=== PATIENT | female | born 1995 | race Caucasian/White ===

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

== ENCOUNTER 2017-01-20 05:29 | Inpatient (IN) | payer OTHER ==
[~2017-01-20] VITALS: Ht 177.8 cm; Wt 77.6 kg
[2017-01-20] VITALS (43 sets, daily range): BP systolic 115–177; BP diastolic 58–96
[2017-01-20] MEDS ORDERED: MINERAL OIL CONCENTRATE 99.9% 15 ML UDC TOP PRN (06:15)
[2017-01-20 06:33] LABS: BASOPHILS % (AUTO) 0 % (0-10); EOSINOPHILS % (AUTO) 0 % (0-10); LYMPHOCYTES # (AUTO) 1.3 X 10^3 (1.0-4.0); LYMPHOCYTES % (AUTO) 12 % (12-44); MEAN CORPUSCULAR HEMOGLOBIN 30 PG (25-34); MEAN CORPUSCULAR HGB CONC 34 G/DL (32-36); MEAN CORPUSCULAR VOLUME 89 FL (80-99); MEAN PLATELET VOLUME 11.6 FL (7.4-10.4); MONOCYTES # (AUTO) 0.9 X 10^3 (0.0-1.0); MONOCYTES % (AUTO) 8 % (0-12); NEUTROPHILS # (AUTO) 9.3 X 10^3 (1.8-7.8); NEUTROPHILS % (AUTO) 81 % (42-75); PLATELET COUNT 211 10^3/uL (130-400); RED BLOOD COUNT 3.13 10^6/uL (4.35-5.85); RED CELL DISTRIBUTION WIDTH 12.3 % (10.0-14.5); WHITE BLOOD COUNT 11.6 10^3/uL (4.3-11.0)
[2017-01-20] MEDS: D5 LR IV SOLUTION 1,000 ML IV SCH ×2 (06:42→14:42)
--- NOTE | 2017-01-20 08:34 | History & Physical-OB ---
OB - Chief Complaint & HPI Date/Time Date of Admission: Date of Admission: Jan 20, 2017 at 6:11 am Time Seen by Provider: 08:29 Chief Complaint/History OB-Reason for Admission/Chief: Rupture of Membranes Hx : 1 Hx Para: 0 Expected Date of Delivery: Jan 30, 2017 Gestational Age in Weeks: 38 Gestational Age in Days: 4 Other reason for admission: At home noted gush of fluid at around 1 am with continued leaking fluid and mild contractions, found to have SROM. Admission Nurse Assessment Rev: Yes History of Labs A neg, antibody neg, RNI, HIV/HepB/RPR NR, GC/chlamydia neg. Declined tetra. 1 hour glucola normal. Hgb 10.0. GBS neg. Allergies and Home Medications Allergies Coded Allergies: amoxicillin (Verified Allergy, Mild, RASH, 01/20/17) clavulanic acid (Verified Allergy, Mild, RASH, 01/20/17) Home Medications Albuterol Sulfate 1.25 Mg/3 Ml Vial.neb, 1.25 MG IH PRN, (Reported) Ferrous Sulfate 325 Mg Tablet, 325 MG PO DAILY, (Reported) OB - History Hx of Present Care: Yes Ultrasounds: Normal mid trimester US Obstetrical Complications: None Medical Complications: Respiratory (asthma) Obstetrical History Hx : 1 Hx Para: 0 Hx # Term Pregnancies: 0 Hx # Pregnancies: 0 Number of Living Children: 0 Delivery History Hx Blood Disorders: No Patient Past Medical History PMHx: Asthma ADHD PSurgHx: None Social History/Family History HIV/AIDS: No Recent Infectious Disease Expo: No Sexually Transmitted Disease: No Alcohol Use: Denies Use Recreational Drug Use: No Smoking Cessation: Never smoker Immunizations Tetanus Booster (TDap): Less than 5yrs (12/06/2016) Date of Pneumonia Vaccine: Dec 24, 2013 Date of Influenza Vaccine: Nov 17, 2016 Rubella: not immune RPR/VDRL: Negative GBS Status: Negative HBsAG: Negative OB - Admission Exam Physical Exam HEENT: NCAT Abdomen: Non tender Extremities: Normal Cervical Dilatation: 4cm Effacement: Other (80%) Station: 0 Membranes: Ruptured Amniotic Fluid: Clear Heart Rate: 140's Accelerations: Accelerations Present Decelerations: No Decelerations Short Term Variability: Present Fci Variability: Average (6-25) Contractions on Admission: < 5 Minutes Apart Intensity: Mild Labs Laboratory Tests Test 01/20/17 06:25 Range/Units White Blood Count 11.6 H 4.3-11.0 10^3/uL Red Blood Count 3.13 L 4.35-5.85 10^6/uL Hemoglobin 9.4 L 11.5-16.0 G/DL Hematocrit 28 L 35-52 % Mean Corpuscular Volume 89 80-99 FL Mean Corpuscular Hemoglobin 30 25-34 PG Mean Corpuscular Hemoglobin Concent 34 32-36 G/DL Red Cell Distribution Width 12.3 10.0-14.5 % Platelet Count 211 130-400 10^3/uL Mean Platelet Volume 11.6 H 7.4-10.4 FL Neutrophils (%) (Auto) 81 H 42-75 % Lymphocytes (%) (Auto) 12 12-44 % Monocytes (%) (Auto) 8 0-12 % Eosinophils (%) (Auto) 0 0-10 % Basophils (%) (Auto) 0 0-10 % Neutrophils # (Auto) 9.3 H 1.8-7.8 X 10^3 Lymphocytes # (Auto) 1.3 1.0-4.0 X 10^3 Monocytes # (Auto) 0.9 0.0-1.0 X 10^3 Eosinophils # (Auto) 0.0 0.0-0.3 10^3/uL Basophils # (Auto) 0.0 0.0-0.1 10^3/uL OB - Assessment/Plan/Diagnosis Assessment Assessment: rupture of membranes Plan Plan: Expectant Management Copy Copies To 1: RICHI COSBY MD, BETHANY N MD Jan 20, 2017 8:34 am
[2017-01-20] MEDS: OXYTOCIN/NORMAL SALINE 500 ML IV SCH ×2 (10:33→16:49)
[2017-01-20] MEDS ORDERED: fentaNYL INJECTION 100 MCG/2 ML AMP IVP PRN (11:30)
[2017-01-20] MEDS ORDERED: fentaNYL INJECTION 100 MCG/2 ML AMP ONE (12:57)
[2017-01-20] MEDS ORDERED: BUPIVACAINE 0.25% 30 ML (SENSORCAINE) VIAL ONE (12:57)
[2017-01-20] MEDS ORDERED: SUFENTA 0.6MCG/ML BUPIVA 0.125 100 ML ONE (13:13)
[2017-01-20] MEDS ORDERED: NALOXONE 0.4 MG/ML 1 ML (NARCAN) VIAL IV PRN (14:00)
[2017-01-20] MEDS ORDERED: ONDANSETRON 4 MG/2 ML (SDV) Z0FRAN IV PRN (14:00)
[2017-01-20] MEDS ORDERED: CATHETER FLUSH 10 ML SYR IV SCH ×2 (14:00→22:00)
[2017-01-20] MEDS ORDERED: EPIDURAL (SUFENTA 0.6MCG/ML BUPIVA 0.125%) 100 ML BAG EPI SCH (14:00)
[2017-01-20] MEDS ORDERED: LIDOCAINE/EPI 2% 1:200,00 (XYLOCAINE) 10 ML VIAL ONE ×2 (15:57→16:19)
[2017-01-20] MEDS ORDERED: MISOPROSTOL 200 MCG (CYTOTEC) TABLET ONE (16:05)
[2017-01-20] MEDS ORDERED: MISOPROSTOL 200 MCG (CYTOTEC) TABLET PR ONE (16:15)
[2017-01-20] MEDS ORDERED: OXYTOCIN/NORMAL SALINE 500 ML IV SCH (17:53)
[2017-01-20] MEDS ORDERED: DIBUCAINE (NUPERCAINAL) 1% OINT 30 GM TOP PRN (18:00)
[2017-01-20] MEDS ORDERED: TETANUS,DIPTH,PERTUSS P/F (BOOSTRIX) 0.5 ML VIAL IM ONE (18:00)
[2017-01-20] MEDS ORDERED: WITCH HAZEL(TUCKS) 40 EA JAR TOP PRN (18:00)
[2017-01-20] MEDS ORDERED: MEASLES,MUMPS,RUBELLA 1 EA INJ SQ ONE (18:00)
[2017-01-20] MEDS ORDERED: HYDROcodone/APAP 5 MG/325 MG (LORTAB) TAB PO PRN (18:00)
[2017-01-20] MEDS ORDERED: BENZOCAINE/MENTHOL (DERMOPLAST) 56 ML CAN TP PRN (18:00)
[2017-01-20] MEDS: IBUPROFEN 600 MG (MOTRIN) TAB PO SCH ×2 (18:02→23:56)
[2017-01-20] MEDS: DOCUSATE SODIUM 100 MG (COLACE) CAP PO SCH (23:57)
--- NOTE | 2017-01-21 00:05 | OB Labor & Delivery Record ---
Vag Delivery Note Vag Delivery Note Date of Delivery: 01/21/17 Preoperative Diagnosis: Lydia Herman is a (21 /Para 1 / 0,Gestational Age (wks)38with 4 days Postoperative Diagnosis: Same Surgeon: RICHI COSBY Anesthesia: Epidural/spinal Delivery Type: Spontaneous vaginal delivery Findings: Viable male infant, apgars 8/9, weight 7#12 Lacerations: second degree perineal Intact placenta with 3 vessel cord. Nuchal cord x 1, delivered through, no body cord or shoulder dystocia Cytotec 800 mcg placed for hemorrhage prophylaxis Estimated Blood Loss: 400 ml Complications: None Condition: Stable Description of Procedure: The patient is a 21 yo G1 who presented with SROM. She was admitted and informed consent was obtained. Her labor course was unremarkable. She progressed to complete dilatation and began to push. She was then set up for delivery. The infant's head was delivered atraumatically in the JUD position. The shoulders and remainder of the infant's body were then delivered without difficulty. Upon delivery, the head was held below the level of the perineum and the cried spontaneously and was placed on maternal abdomen. After a delay, the cord was doubly clamped and cut and the was handed off to the pediatric staff. An intact placenta with 3- vessel cord delivered via Quentin and there was found to be minimal bleeding.~ Vigorous fundal massage was performed and the fundus was found to be firm. IV oxytocin was given. Examination of the vagina and perineum revealed a second degree laceration repaired in the usual fashion with 3-0 rapide suture. Following the repair, sponge, instrument and needle counts were correct. Mom and baby were both in stable condition in the labor suite. Vitals - Labs Labs Laboratory Tests 01/20/17 06:25: White Blood Count 11.6H, Red Blood Count 3.13L, Hemoglobin 9.4L, Hematocrit 28L , Mean Corpuscular Volume 89, Mean Corpuscular Hemoglobin 30, Mean Corpuscular Hemoglobin Concent 34, Red Cell Distribution Width 12.3, Platelet Count 211, Mean Platelet Volume 11.6H, Neutrophils (%) (Auto) 81H, Lymphocytes (%) (Auto) 12, Monocytes (%) (Auto) 8, Eosinophils (%) (Auto) 0, Basophils (%) (Auto) 0, Neutrophils # (Auto) 9.3H, Lymphocytes # (Auto) 1.3, Monocytes # (Auto) 0.9, Eosinophils # (Auto) 0.0, Basophils # (Auto) 0.0 RICHI COSBY MD Jan 21, 2017 12:05 am
[2017-01-21 04:30] VITALS: BP 119/71
[2017-01-21 06:10] LABS: BASOPHILS % (AUTO) 0 % (0-10); EOSINOPHILS # (AUTO) 0.1 10^3/uL (0.0-0.3); EOSINOPHILS % (AUTO) 1 % (0-10); LYMPHOCYTES # (AUTO) 1.4 X 10^3 (1.0-4.0); LYMPHOCYTES % (AUTO) 15 % (12-44); MEAN CORPUSCULAR HEMOGLOBIN 29 PG (25-34); MEAN CORPUSCULAR HGB CONC 32 G/DL (32-36); MEAN CORPUSCULAR VOLUME 91 FL (80-99); MEAN PLATELET VOLUME 11.2 FL (7.4-10.4); MONOCYTES % (AUTO) 10 % (0-12); NEUTROPHILS # (AUTO) 7.4 X 10^3 (1.8-7.8); NEUTROPHILS % (AUTO) 75 % (42-75); PLATELET COUNT 170 10^3/uL (130-400); RED BLOOD COUNT 2.63 10^6/uL (4.35-5.85); RED CELL DISTRIBUTION WIDTH 12.4 % (10.0-14.5); WHITE BLOOD COUNT 9.9 10^3/uL (4.3-11.0)
[2017-01-21] MEDS: IBUPROFEN 600 MG (MOTRIN) TAB PO SCH ×2 (06:16→12:57)
[2017-01-21] MEDS ORDERED: PRENATAL VITAMIN 1 EA TAB PO SCH (07:00)
[2017-01-21 07:54] VITALS: BP 130/83
[2017-01-21] MEDS ORDERED: MEASLES,MUMPS,RUBELLA 1 EA INJ ONE (09:58)
[2017-01-21] MEDS: DOCUSATE SODIUM 100 MG (COLACE) CAP PO SCH (10:10)
[2017-01-21] MEDS ORDERED: IBUP-1773 PO (12:32)
--- NOTE | 2017-01-21 12:33 | Discharge Instructions ---
Discharge Inst-Women's Serv Depart Medications New, Converted or Re-Newed RX: Other (may take over the counter or call to pharmacy) New Medications: Ibuprofen (Ibuprofen) 600 Mg Tablet 600 MG PO Q6H PRN for CRAMPS, #90 TAB 0 Refills Continued Medications: Albuterol Sulfate (Albuterol Sulfate) 1.25 Mg/3 Ml Vial.neb 1.25 MG IH PRN, EACH Ferrous Sulfate (Iron) 325 Mg Tablet 325 MG PO DAILY, TAB Follow Up/Instructions Goal/Follow Up: Follow-up with Dr. Argueta in 6 weeks Activity Activity: Activity as Tolerated Nothing Inside Vagina: No Douching, No [place], No Tampons Diet Discharge Diet: No Restrictions Symptoms to Report to : Bleeding Excessive, Pain Increased, Fever Over 101 Degrees F, Vaginal Bleeding Increase, Vaginal Discharge Foul, Shortness of Breath For Any Problems or Questions: Contact Your Physician Copies To 1: RICHI ARGUETA MD, LINDA K DO Jan 21, 2017 12:33
[2017-01-21 12:56] VITALS: BP 124/69
--- NOTE | 2017-01-21 20:06 | Discharge Summary ---
Diagnosis/Chief Complaint Date of Admission Jan 20, 2017 at 06:11 Date of Discharge Jan 21, 2017 at 14:25 Admission Diagnosis Admission Diagnosis at 38w4 SROM Anemia of Discharge Diagnosis at 38w4 s/p 01/20/17 2nd degree laceration repair Anemia of , asymptomatic Discharge Summary-OBS Procedures None. Discharge Physical Examination Allergies: Coded Allergies: amoxicillin (Verified Allergy, Mild, RASH, 01/20/17) clavulanic acid (Verified Allergy, Mild, RASH, 01/20/17) Vitals & I&Os Vital Sign - Last 12Hours Date Time Temp Pulse Resp B/P (MAP) Pulse Ox O2 Delivery O2 Flow Rate FiO2 01/21/17 12:56 98.9 94 16 124/69 97 Room Air General Appearance: Alert, Oriented X3, Cooperative Abdominal: Soft, No Tenderness Psych/Mental Status: Mental Status NL Hospital Course Routine pp course. Pt DC prior to 24h due to infant transfer to [facility] due to respiratory distress. Labs Laboratory Tests 01/21/17 05:57: White Blood Count 9.9, Red Blood Count 2.63L, Hemoglobin 7.7L, Hematocrit 24L, Mean Corpuscular Volume 91, Mean Corpuscular Hemoglobin 29, Mean Corpuscular Hemoglobin Concent 32, Red Cell Distribution Width 12.4, Platelet Count 170, Mean Platelet Volume 11.2H, Neutrophils (%) (Auto) 75, Lymphocytes (%) (Auto) 15 , Monocytes (%) (Auto) 10, Eosinophils (%) (Auto) 1, Basophils (%) (Auto) 0, Neutrophils # (Auto) 7.4, Lymphocytes # (Auto) 1.4, Monocytes # (Auto) 1.0, Eosinophils # (Auto) 0.1, Basophils # (Auto) 0.0 Discharge Instructions to patient/family Please see electronic discharge instructions given to patient. Discharge Medications Reviewed and agree with Discharge Medication list on patient's Discharge Instruction sheet Clinical Quality Measures DVT/VTE Risk/Contraindication: Risk Factor Score Per Nursin RFS Level Per Nursing on Admit: 1=Low/No VTE PPX HELENA VELAZCO DO Jan 21, 2017 20:06
== END 2017-01-21 14:25 | disposition home or self-care (01) | DRG 775 ==
LOC: WSo 05:29 → LDRP 05:30 → WSo 06:11 → LDRP 17:50
PROVIDERS: ADMIT Family Medicine; ATTEND Family Medicine
PROC: 0KQM0ZZ Repair Perineum Muscle, Open Approach (ICD-10-PCS; principal; 2017-01-21)
PROC: 10E0XZZ Delivery of Products of Conception, External Approach (ICD-10-PCS; 2017-01-21)
DX: O99.52 Diseases of the respiratory system complicating childbirth (principal); O99.344 Other mental disorders complicating childbirth; O70.1 Second degree perineal laceration during delivery; J45.909 Unspecified asthma, uncomplicated; F90.9 Attention-deficit hyperactivity disorder, unspecified type; O69.81X0 Labor and delivery complicated by cord around neck, without compression, not applicable or unspecified; O99.013 Anemia complicating pregnancy, third trimester; D64.9 Anemia, unspecified; Z3A.38 38 weeks gestation of pregnancy; Z37.0 Single live birth; Z23 Encounter for immunization
CPT/HCPCS: 36415; 83033; 85025; 86850; 86900; 86901; 90707; 99212

== ENCOUNTER 2020-02-10 14:08 | Outpatient (CLI) | payer MEDICAID ==
[~2020-02-10] VITALS: Ht 177.8 cm; Wt 85.5 kg
--- NOTE | 2020-02-10 13:58 | NUR ---
SONA FISCHER presented to unit via AMBULATORY from ED, with c/o CONTRACTIONS. SONA FISCHER weighed, gowned, voided, and to bed. EFHM and TOCO applied, VS taken. SONA FISCHER oriented to bed controls, call light, TV, heat, and A/C controls.
[~2020-02-10 14:08] MED LIST changes: +IBUP-1773 PO
[2020-02-10 14:10] VITALS: BP 136/87
[2020-02-10 14:24] LABS: BILIRUBIN,URINE NEGATIVE (NEGATIVE); CLARITY,URINE SL CLOUDY; COLOR,URINE YELLOW; GLUCOSE, URINE (UA) NEGATIVE (NEGATIVE); KETONES,URINE NEGATIVE (NEGATIVE); LEUKOCYTE ESTERASE ,URINE 2+ (NEGATIVE); NITRITE,URINE NEGATIVE (NEGATIVE); PROTEIN,URINE NEGATIVE (NEGATIVE)
[2020-02-10 14:32] LABS: BACTERIA,URINE MODERATE /HPF
[2020-02-10 14:48] VITALS: BP 136/87
--- NOTE | 2020-02-10 15:00 | NUR ---
DR. COSBY TO UNIT, CURRENTLY ON THE PHONE.
--- NOTE | 2020-02-10 15:09 | NUR ---
REFER TO FLOW SHEET.
--- NOTE | 2020-02-10 16:31 | Diagnostic Imaging Report ---
INDICATION: Fall with right wrist pain. EXAMINATION: AP and lateral views of the right wrist are obtained. FINDINGS: No fracture or acute bony abnormality seen. Joint spaces are unremarkable. IMPRESSION: Negative right wrist. Dictated by: Dictated on workstation # [id number]
--- NOTE | 2020-02-10 16:41 | NUR ---
DR. COSBY NOTIFIED OF NEGATIVE WRIST XRAY. ORDER RECEIVED TO DISCHARGE HOME. INDUCTION SCHEDULED FOR February.
--- NOTE | 2020-02-10 16:47 | NUR ---
DISCHARGE PAPERS PROVIDED AND REVIEWED WITH PT, PT VERBALIZES UNDERSTANDING. NO QUESTIONS VOICED. PAPER SIGNED.
--- NOTE | 2020-02-10 16:50 | NUR ---
PT DISCHARGED FROM -[facility] TO [facility] VIA AMBULATORY IN STABLE CONDITION. BELONGINGS IN HAND.
--- NOTE | 2020-02-11 11:27 | Physician Query-Final Dx ---
MANISHA SMITH 02/11/20 1127: Clinic Account Progress/Dx Physician Query: Please give diagnosis Please include # weeks gestation Date of Service Feb 10, 2020 at 14:08 RICHI COSBY MD 02/11/205: Clinic Account Progress/Dx DIAGNOSIS: Diagnosis 38 weeks gestation Contractions without active labor right wrist injury MANISHA SMITH Feb 11, 2020 11:27 RICHI COSBY MD Feb 11, 2020 20:45
== END 2020-02-10 16:50 | disposition home or self-care (01) ==
LOC: LDRP 14:08 → WSo 14:08
PROVIDERS: ATTEND Family Medicine
DX: O9A.313 Physical abuse complicating pregnancy, third trimester (principal); O62.9 Abnormality of forces of labor, unspecified; S69.91XA Unspecified injury of right wrist, hand and finger(s), initial encounter; Z3A.38 38 weeks gestation of pregnancy
CPT/HCPCS: 73100; 81000; 87088; U0002; 87635; 99213

== ENCOUNTER 2020-02-12 04:20 | Inpatient (IN) | payer MEDICAID ==
[~2020-02-12] VITALS: Ht 177.8 cm; Wt 84.6 kg
[2020-02-12] VITALS (35 sets, daily range): BP systolic 107–152; BP diastolic 70–97
--- NOTE | 2020-02-12 06:20 | NUR ---
SONA FISCHER presented to unit via WC from ED, accompanied by KATTY AGENT [employer] DESK, with c/o INDUCTION. SONA FISCHER weighed, gowned, voided, and to bed. EFHM and TOCO applied, VS taken. SONA FISCHER oriented to bed controls, call light, TV, heat, and A/C controls. ABOVE AND IV START PER THIS RN.
--- NOTE | 2020-02-12 06:58 | NUR ---
Reactive NST, FHR 130's with moderate variability, no decels noted and accels greater than 15/15. Uterine irritability noted with no contractions.
[2020-02-12] MEDS ORDERED: D5 LR IV SOLUTION 1,000 ML IV SCH (07:15)
[2020-02-12] MEDS ORDERED: OXYTOCIN PRE-MIX DRIP 500 ML IV SCH ×2 (07:15→11:45)
[2020-02-12 07:50] LABS: BASOPHILS % (AUTO) 0 % (0-10); EOSINOPHILS # (AUTO) 0.1 10^3/uL (0.0-0.3); EOSINOPHILS % (AUTO) 1 % (0-10); HEMATOCRIT 27 % (35-52); LYMPHOCYTES # (AUTO) 1.2 10^3/uL (1.0-4.0); LYMPHOCYTES % (AUTO) 18 % (12-44); MEAN CORPUSCULAR HEMOGLOBIN 30 pg (25-34); MEAN CORPUSCULAR HGB CONC 34 g/dL (32-36); MEAN CORPUSCULAR VOLUME 89 fL (80-99); MEAN PLATELET VOLUME 11.6 fL (9.0-12.2); MONOCYTES # (AUTO) 0.6 10^3/uL (0.0-1.0); MONOCYTES % (AUTO) 8 % (0-12); NEUTROPHILS # (AUTO) 4.9 10^3/uL (1.8-7.8); NEUTROPHILS % (AUTO) 72 % (42-75); PLATELET COUNT 239 10^3/uL (130-400); WHITE BLOOD COUNT 6.8 10^3/uL (4.3-11.0)
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
[2020-02-12 08:11] LABS: ALANINE AMINOTRANSFERASE 7 U/L (0-55); ALBUMIN 3.4 GM/DL (3.2-4.5); ALKALINE PHOSPHATASE 118 U/L (40-136); BILIRUBIN,TOTAL 0.5 MG/DL (0.1-1.0); BUN/CREATININE RATIO 10; CARBON DIOXIDE 22 MMOL/L (21-32); CHLORIDE 104 MMOL/L (98-107); CREATININE SERUM 0.71 MG/DL (0.60-1.30); GFR ESTIMATED > 60; GLUCOSE 97 MG/DL (70-105); POTASSIUM 2.9 MMOL/L (3.6-5.0); SODIUM 137 MMOL/L (135-145); TOTAL PROTEIN 6.4 GM/DL (6.4-8.2)
[2020-02-12] MEDS ORDERED: fentaNYL 2 mcg/ml BUPIVA 0.125 100 ML ONE (09:29)
[2020-02-12] MEDS ORDERED: LACTATED RINGERS 1,000 ML IV ONE (09:30)
[2020-02-12] MEDS ORDERED: LIDOCAINE/EPI 2% 1:200,00 (XYLOCAINE) 10 ML VIAL ONE (10:16)
[2020-02-12] MEDS ORDERED: LIDOCAINE PF 2% 5 ML (XYLOCAINE) VIAL ONE (10:25)
[2020-02-12] MEDS ORDERED: BUPIVACAINE 0.25% 30 ML (SENSORCAINE) VIAL ONE (10:25)
[2020-02-12] MEDS ORDERED: fentaNYL INJECTION 100 MCG/2 ML AMP ONE (10:25)
[2020-02-12] MEDS ORDERED: LACTATED RINGERS 1,000 ML IV SCH (10:45)
[2020-02-12] MEDS ORDERED: diphenhydrAMINE 50 MG/ML INJ (BENADRYL) IV PRN (10:45)
[2020-02-12] MEDS ORDERED: EPIDURAL (fentaNYL 2 MCG/ML BUPIVA 0.125%)100 ML BAG EPI PRN (10:45)
[2020-02-12] MEDS ORDERED: NALOXONE 0.4 MG/ML 1 ML (NARCAN) VIAL IV PRN (10:45)
[2020-02-12] MEDS ORDERED: ONDANSETRON 4 MG/2 ML (SDV) Z0FRAN IV PRN (10:45)
[2020-02-12] MEDS ORDERED: fentaNYL 2 mcg/ml BUPIVA 0.125 100 ML EPI PRN (11:00)
[2020-02-12] MEDS ORDERED: MISOPROSTOL 200 MCG (CYTOTEC) TABLET ONE (11:24)
--- NOTE | 2020-02-12 11:43 | History & Physical-OB/GYN ---
DESMONDKENDAL Milton MED STUDENT 02/12/20 1143: OB - Chief Complaint & HPI Date/Time Date of Admission: Date of Admission: Feb 12, 2020 at 06:17 Date seen by a Provider: Feb 12, 2020 Time Seen by a Provider: 08:40 Chief Complaint/History OB-Reason for Admission/Chief: Medical Complication (gestational hypertension ) Hx : 2 Hx Para: 1 Hx Last Menstrual Period: 05/14/2019 Expected Date of Delivery: Feb 18, 2020 Gestational Age in Weeks: 39 Gestational Age in Days: 1 Indication for induction: medical complication Admission Nurse Assessment Rev: Yes Allergies and Home Medications Allergies Coded Allergies: amoxicillin (Verified Allergy, Severe, Shortness of Breath, 02/12/20) clavulanic acid (Verified Allergy, Mild, RASH, 01/20/17) Home Medications Albuterol Sulfate 1.25 Mg/3 Ml Vial.neb, 1.25 MG IH PRN, (Reported) Ferrous Sulfate 325 Mg Tablet, 325 MG PO DAILY, (Reported) Patient Home Medication List Home Medication List Reviewed: Yes OB - History Hx of Present Care: Yes Ultrasounds: Normal mid trimester US Obstetrical Complications: Gestational Hypertension Medical Complications: None Information Induced Hypertension: Yes Maternal Gestational Diabetes: No Hemorrhage: No Obstetrical History Hx : 2 Hx Para: 1 Hx # Term Pregnancies: 1 Hx # Pregnancies: 0 Number of Living Children: 1 Hx Termination: No Hx Multiple Gestation: Yes Hx Ectopic : No Hx Stillbirth: No Hx Complication: No Hx Induced Hypertens: Yes Hx Maternal Gestational Diabet: No Hx Hemorrhage: No Delivery History Hx Dystocia: No Hx Forceps Assisted Delivery: No Hx Vacuum Extraction Assisted: No Hx Placenta Abnormality: No Hx Distress: No Hx Large For Gestational Age I: No Hx Small for Gestational Age I: No Hx Section: No Hx Vaginal Delivery Post C-Sec: No Hx Blood Disorders: No Adverse Rxn to Tranfusion: No Patient Past Medical History PMHx: Asthma ADHD PSurgHx: None Social History/Family History HIV/AIDS: No Recent Infectious Disease Expo: No Sexually Transmitted Disease: Yes (Trich - early preg) Alcohol Use: Denies Use Recreational Drug Use: No Immunizations Hepatitis A: No Hepatitis B: No Tetanus Booster (TDap): Less than 5yrs Date of Pneumonia Vaccine: Dec 24, 2013 Date of Influenza Vaccine: Nov 17, 2016 Rubella: immune RPR/VDRL: Negative GBS Status: Negative HBsAG: Negative OB - Admission Exam Physical Exam HEENT: Eyes non-injected Lungs: Clear Abdomen: Non tender Extremities: Normal Cervical Dilatation: 5cm Effacement: 50% Station: -2 Membranes: Intact Amniotic Fluid: Other (bloody) Heart Rate: 140's Accelerations: Accelerations Present Decelerations: Variable Decelerations Short Term Variability: Present Program Instructor Variability: Average (6-25) Contractions on Admission: 6-10 Minutes Apart Date/Time Contractions Began;: patient has had contractions for the past week Frequency of Contractions: 10 minutes apart Intensity: Mild Eduardo Scoring Tool (Modified) Dilation (cm): >5cm (3) Effacement (%): 51-79% (2) Descent/Station: -2 (1) Cervix Consistency: Medium(1) Cervix Position: Anterior (2) Labs Laboratory Tests Test 02/12/20 06:45 Range/Units White Blood Count 6.8 4.3-11.0 10^3/uL Red Blood Count 2.99 L 3.80-5.11 10^6/uL Hemoglobin 9.0 L 11.5-16.0 g/dL Hematocrit 27 L 35-52 % Mean Corpuscular Volume 89 80-99 fL Mean Corpuscular Hemoglobin 30 25-34 pg Mean Corpuscular Hemoglobin Concent 34 32-36 g/dL Red Cell Distribution Width 12.9 10.0-14.5 % Platelet Count 239 130-400 10^3/uL Mean Platelet Volume 11.6 9.0-12.2 fL Immature Granulocyte % (Auto) 0 % Neutrophils (%) (Auto) 72 42-75 % Lymphocytes (%) (Auto) 18 12-44 % Monocytes (%) (Auto) 8 0-12 % Eosinophils (%) (Auto) 1 0-10 % Basophils (%) (Auto) 0 0-10 % Neutrophils # (Auto) 4.9 1.8-7.8 10^3/uL Lymphocytes # (Auto) 1.2 1.0-4.0 10^3/uL Monocytes # (Auto) 0.6 0.0-1.0 10^3/uL Eosinophils # (Auto) 0.1 0.0-0.3 10^3/uL Basophils # (Auto) 0.0 0.0-0.1 10^3/uL Immature Granulocyte # (Auto) 0.0 0.0-0.1 10^3/uL Sodium Level 137 135-145 MMOL/L Potassium Level 2.9 L 3.6-5.0 MMOL/L Chloride Level 104 98-107 MMOL/L Carbon Dioxide Level 22 21-32 MMOL/L Anion Gap 11 5-14 MMOL/L Blood Urea Nitrogen 7 7-18 MG/DL Creatinine 0.71 0.60-1.30 MG/DL Estimat Glomerular Filtration Rate > 60 BUN/Creatinine Ratio 10 Glucose Level 97 70-105 MG/DL Uric Acid 5.0 2.6-7.2 MG/DL Calcium Level 9.0 8.5-10.1 MG/DL Corrected Calcium 9.5 8.5-10.1 MG/DL Total Bilirubin 0.5 0.1-1.0 MG/DL Aspartate Amino Transf (AST/SGOT) 9 5-34 U/L Alanine Aminotransferase (ALT/SGPT) 7 0-55 U/L Alkaline Phosphatase 118 40-136 U/L Lactate Dehydrogenase 135 125-220 U/L Total Protein 6.4 6.4-8.2 GM/DL Albumin 3.4 3.2-4.5 GM/DL OB - Assessment/Plan/Diagnosis Assessment Assessment: active labor, induction of labor Admission Dx Labor induction Reason for Inpatient Admission: Labor induction Plan Plan: Induction Induction Method: per Pitocin Protocol (with AROM) Problems: (1) Gestational hypertension Qualifiers: Qualified Codes: O13.3 - Gestational [-induced] hypertension without significant proteinuria, third trimester RICHI COSBY MD 02/12/20 1349: Allergies and Home Medications Allergies Coded Allergies: amoxicillin (Verified Allergy, Severe, Shortness of Breath, 02/12/20) clavulanic acid (Verified Allergy, Mild, RASH, 01/20/17) Home Medications Albuterol Sulfate 1.25 Mg/3 Ml Vial.neb, 1.25 MG IH PRN, (Reported) Ferrous Sulfate 325 Mg Tablet, 325 MG PO DAILY, (Reported) Patient Home Medication List Home Medication List Reviewed: Yes OB - Admission Exam Eduardo Scoring Tool (Modified) Dilation (cm): >5cm (3) Effacement (%): 51-79% (2) Descent/Station: -2 (1) Cervix Consistency: Soft (2) Cervix Position: Anterior (2) Add 1 point for: Each previous vaginal delivery (1) Eduardo Score: 11 OB - Assessment/Plan/Diagnosis Assessment Admission Status: Inpatient Order (span 2 midnights) Reason for Inpatient Admission: Induction, labor, delivery and course Plan Problems: (1) Gestational hypertension Assessment & Plan: Check preeclampsia labs Qualifiers: Qualified Codes: O13.3 - Gestational [-induced] hypertension without significant proteinuria, third trimester Supervisory-Addendum Brief Verification & Attestation Participated in pt care: history, MDM, physical Personally performed: exam, history, MDM Care discussed with: Medical Student Procedures: n/a I saw and examined this patient myself and agree with history, exam and plan as documented by medical student. KENDAL LOGAN MED STUDENT Feb 12, 2020 11:43 RICHI COSBY MD Feb 12, 2020 13:49
[2020-02-12] MEDS ORDERED: OXYTOCIN PRE-MIX DRIP 500 ML IV ONE (11:44)
[2020-02-12] MEDS ORDERED: WITCH HAZEL(TUCKS) 40 EA JAR TOP PRN (11:45)
[2020-02-12] MEDS ORDERED: BENZOCAINE/MENTHOL (DERMOPLAST) 60 ML CAN TP PRN (11:45)
[2020-02-12] MEDS ORDERED: MISOPROSTOL 200 MCG (CYTOTEC) TABLET PR ONE (11:45)
[2020-02-12] MEDS ORDERED: TETANUS,DIPTH,PERTUSS P/F (BOOSTRIX) 0.5 ML VIAL IM ONE (11:45)
[2020-02-12] MEDS ORDERED: MEASLES,MUMPS,RUBELLA 1 EA INJ SQ ONE (11:45)
--- NOTE | 2020-02-12 11:59 | OB Labor & Delivery Record ---
Vag Delivery Note Vag Delivery Note Date of Delivery: 02/12/20 Preoperative Diagnosis: Lydia Herman is a (24 /Para 2 / 1,Gestational Age (wks)41with 1 day Postoperative Diagnosis: Same Surgeon: RICHI COSBY Director Patient Financial Services: Angelica Steen MS3 Anesthesia: Epidural Delivery Type: Spontaneous vaginal delivery Findings: Viable male , apgars 8/9, weight 6#11 Lacerations: first degree perineal, periurethral abrasions Intact placenta with 3 vessel cord. No nuchal cord, body cord or shoulder dystocia Cytotec 800 mcg placed for hemorrhage prophylaxis Estimated Blood Loss: 400 ml Complications: None Condition: Stable Description of Procedure: The patient is a 24 year old female who presented for IOL for GHTN. She was admitted and informed consent was obtained. Her labor course was remarkable for recurrent deep variable decelerations with pushing. She progressed to complete dilatation and began to push. She was then set up for delivery. The infant's head was delivered atraumatically in the JUD position. The shoulders and remainder of the infant's body were then delivered without difficulty. Upon delivery, the infant was vigorous and placed on maternal abdomen. After a delay the cord was doubly clamped and cut and the infant remained on maternal abdomen. An intact placenta with 3-vessel cord delivered via Quentin and there was found to be minimal bleeding.~ Vigorous fundal massage was performed and the fundus was found to be firm. IV oxytocin w as given. Examination of the vagina and perineum revealed a first degree laceration repaired in the usual fashion with 3-0 vicryl rapide suture. Following the repair, sponge, instrument and needle counts were correct. Mom and baby were both in stable condition in the labor suite. Vitals - Labs Labs Laboratory Tests 02/12/20 06:45: White Blood Count 6.8, Red Blood Count 2.99L, Hemoglobin 9.0L, Hematocrit 27L, Mean Corpuscular Volume 89, Mean Corpuscular Hemoglobin 30, Mean Corpuscular Hemoglobin Concent 34, Red Cell Distribution Width 12.9, Platelet Count 239, Mean Platelet Volume 11.6, Immature Granulocyte % (Auto) 0, Neutrophils (%) (Auto) 72, Lymphocytes (%) (Auto) 18, Monocytes (%) (Auto) 8, Eosinophils (%) (Auto) 1, Basophils (%) (Auto) 0, Neutrophils # (Auto) 4.9, Lymphocytes # (Auto) 1.2, Monocytes # (Auto) 0.6, Eosinophils # (Auto) 0.1, Basophils # (Auto) 0.0, Immature Granulocyte # (Auto) 0.0, Sodium Level 137, Potassium Level 2.9L, Chloride Level 104, Carbon Dioxide Level 22, Anion Gap 11, Blood Urea Nitrogen 7, Creatinine 0.71, Estimat Glomerular Filtration Rate > 60, BUN/Creatinine Ratio 10, Glucose Level 97, Uric Acid 5.0, Calcium Level 9.0, Corrected Calcium 9.5, Total Bilirubin 0.5, Aspartate Amino Transf (AST/SGOT) 9, Alanine Aminotransferase (ALT/SGPT) 7, Alkaline Phosphatase 118, Lactate Dehydrogenase 135, Total Protein 6.4, Albumin 3.4 RICHI COSBY MD Feb 12, 2020 11:59
--- NOTE | 2020-02-12 12:43 | NUR ---
Social Service consult due to adoption placement. Rita MABRY notified per phone as well. Adoptive parents in room and holding and feeding baby in mom's presence.
[2020-02-12] MEDS: IBUPROFEN 600 MG (MOTRIN) TAB PO SCH ×3 (12:52→23:51)
[2020-02-12] MEDS ORDERED: CATHETER FLUSH 10 ML SYR IV SCH ×2 (14:00)
--- NOTE | 2020-02-12 14:48 | NUR ---
CM/SS: Visited with pt, and adoptive family as per Arts And Crafts Teacher Consult related to the Adoption. Plan: Pt has selected a family for adoption of her Summary: This worker introduces herself and her role at the hospital related to the adoption. mother is very chatty and reports she just can't remember things so she will do what she needs to do. Adoptive mother is holding the baby, adoptive father is present as well. All three parents seem ok with everything at the present time. They know that mom will need to sign some papers 12 hours post . Likely this will be tomorrow. This worker will follow up. Telephone call from Exercise Specialist Keyon Maldonado from [place] indicating he will have a local attorney at law come and bring papers to be signed. This worker will follow up.
[2020-02-12] MEDS ORDERED: PREN-142 PO (14:50)
--- NOTE | 2020-02-12 15:00 | NUR ---
CARE ASSUMED OF THIS PT.
--- NOTE | 2020-02-12 16:30 | NUR ---
ADOPTIVE PARENTS IN THE ROOM WITH PT CARING FOR INFANT. PT VSS. DENIES NEED FOR ICE PACK. FF U/1. VAG FLOW LT RUBRA.
--- NOTE | 2020-02-12 18:00 | NUR ---
ROUTINE MOTRIN GIVEN. PT AND ADOPTIVE PARENTS EATING DINNER. REMAINS IN ROOM IN CRIB. DENIES ANY WANTS OR NEEDS.
--- NOTE | 2020-02-12 20:44 | NUR ---
RN to room for assessment. VSS. Pt reports no blood clots passed, light rubra lochia blood flow. Pt visiting with adoptive parents with in room. Pt denies any needs or concerns at this time.
[2020-02-12] MEDS: DOCUSATE SODIUM 100 MG (COLACE) CAP PO SCH (21:20)
[2020-02-13 03:57] VITALS: BP 103/68
[2020-02-13 06:06] LABS: BASOPHILS % (AUTO) 1 % (0-10); EOSINOPHILS # (AUTO) 0.1 10^3/uL (0.0-0.3); EOSINOPHILS % (AUTO) 1 % (0-10); HEMATOCRIT 25 % (35-52); HEMOGLOBIN 8.1 g/dL (11.5-16.0); LYMPHOCYTES # (AUTO) 1.6 10^3/uL (1.0-4.0); LYMPHOCYTES % (AUTO) 24 % (12-44); MEAN CORPUSCULAR HEMOGLOBIN 30 pg (25-34); MEAN CORPUSCULAR HGB CONC 32 g/dL (32-36); MEAN CORPUSCULAR VOLUME 93 fL (80-99); MEAN PLATELET VOLUME 11.3 fL (9.0-12.2); MONOCYTES # (AUTO) 0.6 10^3/uL (0.0-1.0); MONOCYTES % (AUTO) 9 % (0-12); NEUTROPHILS # (AUTO) 4.2 10^3/uL (1.8-7.8); NEUTROPHILS % (AUTO) 65 % (42-75); PLATELET COUNT 167 10^3/uL (130-400); WHITE BLOOD COUNT 6.5 10^3/uL (4.3-11.0)
[2020-02-13] MEDS: IBUPROFEN 600 MG (MOTRIN) TAB PO SCH (06:06)
[2020-02-13] MEDS ORDERED: FERROUS SULF 325 MG (IRON) TAB PO SCH (07:00)
[2020-02-13] MEDS ORDERED: PRENATAL VITAMIN 1 EA TAB PO SCH (07:00)
--- NOTE | 2020-02-13 09:28 | Discharge Summary ---
Discharge Summary Hospital Course Hospital Course Date of Admission: Feb 12, 2020 at 06:17 Admission Diagnosis : Family Physician/Provider: Richi Argueta MD Date of Discharge: 02/13/20 Discharge Diagnosis: GHTN s/p spontaneous vaginal delivery acute blood loss anemia Hospital Course: Pt admitted for IOL due to mild gestational hypertension and advanced cervical dilation, had rapid labor with uncomplicated vaginal delivery and unremarkable course. Labs and Pending Lab Test: Laboratory Tests 02/13/20 05:38: White Blood Count 6.5, Red Blood Count 2.73L, Hemoglobin 8.1L, Hematocrit 25L, Mean Corpuscular Volume 93, Mean Corpuscular Hemoglobin 30, Mean Corpuscular Hemoglobin Concent 32, Red Cell Distribution Width 12.8, Platelet Count 167, Mean Platelet Volume 11.3, Immature Granulocyte % (Auto) 0, Neutrophils (%) (Auto) 65, Lymphocytes (%) (Auto) 24, Monocytes (%) (Auto) 9, Eosinophils (%) (Auto) 1, Basophils (%) (Auto) 1, Neutrophils # (Auto) 4.2, Lymphocytes # (Auto) 1.6, Monocytes # (Auto) 0.6, Eosinophils # (Auto) 0.1, Basophils # (Auto) 0.0, Immature Granulocyte # (Auto) 0.0 Home Meds Active Reported Vitamin Tablet ( Vit No.124/Iron/FA) 1 Each Tablet 1 Each PO DAILY Albuterol Sulfate 1.25 Mg/3 Ml Vial.neb 1.25 Mg IH PRN Iron (Ferrous Sulfate) 325 Mg Tablet 325 Mg PO DAILY Assessment/Pt DC Instructions Follow up with Dr. Argueta in 6 weeks for visit. Discharge Diet: Regular Diet Activity as Tolerated: Yes (avoid strenuous activity for 6 weeks) Discharge Physical Examination Allergies: Coded Allergies: amoxicillin (Verified Allergy, Severe, Shortness of Breath, 02/12/20) clavulanic acid (Verified Allergy, Mild, RASH, 01/20/17) General Appearance: No Apparent Distress, WD/WN Respiratory: Lungs Clear, Normal Breath Sounds Cardiovascular: Regular Rate, Rhythm, No Murmur Skin: Warm/Dry Neurologic/Psychiatric: Alert, Normal Mood/Affect Clinical Quality Measures DVT/VTE Risk/Contraindication: Risk Factor Score Per Nursin RFS Level Per Nursing on Admit: 1=Low/No VTE PPX RICHI ARGUETA MD Feb 13, 2020 09:27
[2020-02-13 10:45] VITALS: BP 132/91
[2020-02-13] MEDS: DOCUSATE SODIUM 100 MG (COLACE) CAP PO SCH (10:45)
--- NOTE | 2020-02-13 11:13 | NUR ---
CM/SS: Whipped Topping Supervisor (Dl Roberto) cell phone [phone] - local contact for deputy attorney general Joel Carbone from [place] [phone] - for pt will be at the hospital today around 2:30pm to have paperwork signed, he will also need a notary. Pt and adoptive parents (in the room with pt) are notified that the Whipped Topping Supervisor will be at the hospital at 2:30pm to have documents signed for the adoption of baby. Pt and adoptive family verbalized understanding.
--- NOTE | 2020-02-13 14:15 | NUR ---
Discharge instructions given. Verbalizes understanding. Discussed depression with pt having previous risks factors with depression and with current adoption. Informed to follow up with Dr Argueta for assistance with mental health issues. Adoptive parents in room. [id number] [employer] work, finance attorney and staff her to have pt sign consents for adoption.
--- NOTE | 2020-02-13 14:22 | Anesthesia-Regional Post-Op ---
Regional Patient Condition Mental Status: Alert, Oriented x3 Circulation: Same as Pre-Op Headache: Absent Sensation: Full Recovery Motor Block: Absent Post Op Complications Complications None Follow Up Care/Instructions Patient Instructions None needed. Anesthesia/Patient Condition Patient is doing well, no complaints, stable vital signs, no apparent adverse anesthesia problems. TARA BECKER DO Feb 13, 2020 14:22
--- NOTE | 2020-02-13 15:15 | NUR ---
Legal documents of adoption on charts of mother and .
--- NOTE | 2020-02-13 17:00 | NUR ---
mother ambulated to private vehicle with FRANNIE Bowles, adoptive parents and @ side. secured in rear facing car seat. pt stable with no sx's of distress noted.
--- NOTE | 2020-02-14 08:26 | NUR ---
CM/SS: LATE ENTRY - This worker met criminal attorney (Dl Roberto) at approximately 2:30pm. and escorted him to room of pt. Webfed Offset Press Operator present with legal documents, as well as adopted parents, and Notary. All necessary documents are signed and notarized. Document copies obtained (for medical record). Webfed Offset Press Operator was escorted back downstairs to outpatient entrance. Webfed Offset Press Operator thanked this worker for her help in the process.
== END 2020-02-13 17:00 | disposition home or self-care (01) | DRG 806 ==
LOC: LDRP 06:17
PROVIDERS: ADMIT Family Medicine; ATTEND Family Medicine
PROC: 10E0XZZ Delivery of Products of Conception, External Approach (ICD-10-PCS; principal; 2020-02-12)
PROC: 0HQ9XZZ Repair Perineum Skin, External Approach (ICD-10-PCS; 2020-02-12)
PROC: 3E033VJ Introduction of Other Hormone into Peripheral Vein, Percutaneous Approach (ICD-10-PCS; 2020-02-12)
DX: O13.4 Gestational [pregnancy-induced] hypertension without significant proteinuria, complicating childbirth (principal); D62 Acute posthemorrhagic anemia; Z37.0 Single live birth; O70.0 First degree perineal laceration during delivery; O90.81 Anemia of the puerperium; O99.513 Diseases of the respiratory system complicating pregnancy, third trimester; J45.909 Unspecified asthma, uncomplicated; O99.343 Other mental disorders complicating pregnancy, third trimester; F90.9 Attention-deficit hyperactivity disorder, unspecified type; Z3A.39 39 weeks gestation of pregnancy
CPT/HCPCS: 36415; 80053; 83615; 84550; 85025; 86780; 86850; 86900; 86901

== ENCOUNTER 2020-04-13 10:30 | Outpatient (RCR) | payer MEDICAID ==
[~2020-04-13 10:30] MED LIST changes: +PREN-142 PO
== END 2020-07-12 | disposition home or self-care (01) ==
LOC: CARD 10:30
PROVIDERS: ATTEND Family Medicine
DX: R00.0 Tachycardia, unspecified (principal)
CPT/HCPCS: 93225; 93226

== ENCOUNTER 2022-11-25 14:36 | Emergency (ER) | payer MEDICAID ==
[~2022-11-25] VITALS: Ht 177 cm; Wt 94.3 kg
--- NOTE | 2022-11-25 14:57 | ED Headache ---
General Chief Complaint: Head/Cervical Problems Stated Complaint: EYE SWELLING | HEADACHE History of Present Illness Date Seen by Provider: Nov 25, 2022 Time Seen by Provider: 14:52 Initial Comments 26-year-old female presents with a headache. Patient reports that she has been dealing with this headache for at least a month. That she was seen her primary care office and sent to nurse aide evaluator. At the nurse aide evaluator she was found to have bilateral optic nerve swelling. They then sent her over here requesting a very large work-up. Patient reports that she would prefer to try to do the work-up on outpatient basis since she has been dealing with it for a month already anyway. Allergies and Home Medications Allergies Coded Allergies: amoxicillin (Verified Allergy, Severe, Shortness of Breath, 02/12/20) clavulanic acid (Verified Allergy, Mild, RASH, 01/20/17) Patient Home Medication List Home Medication List Reviewed: Yes Albuterol Sulfate (Albuterol Sulfate) 1.25 Mg/3 Ml Vial.neb, 1.25 MG IH PRN, (Reported) Entered as Reported by: DIAZ REDDY on 12/24/16 1509 Ferrous Sulfate (Iron) 325 Mg Tablet, 325 MG PO DAILY, (Reported) Entered as Reported by: DIAZ REDYD on 12/24/16 1508 Vit No.124/Iron/FA ( Vitamin Tablet) 1 Each Tablet, 1 EACH PO DAILY, (Reported) Entered as Reported by: HORACIO BROWN on 02/12/20 1450 Review of Systems Review of Systems Constitutional: see HPI Eyes: Blurred Vision Respiratory: no symptoms reported Cardiovascular: no symptoms reported Gastrointestinal: no symptoms reported Genitourinary: no symptoms reported Musculoskeletal: no symptoms reported Skin: no symptoms reported Psychiatric/Neurological: Headache Past Uuwlamb-Zovonn-Ouibcs Hx Patient Social History Tobacco Use?: No Substance use?: No Alcohol Use?: Yes Alcohol Frequency: Rarely Pt feels they are or have been: No Immunizations Up To Date Tetanus Booster (TDap): Less than 5yrs PED Vaccines UTD: No Seasonal Allergies Seasonal Allergies: Yes Past Medical History Surgery/Hospitalization HX: PT PRESENTS TO ED VIA POV FROM DR VILLANUEVA OFFICE FOR SWELLING OF HER OPTIC NERVE. PT REPOTS SHE HAS HAD H FOR 1 MONTH. PT STATES SHE HAS BEEN AT [facility] OFFICE WELL AND IS SUPPOSED TO HAVE AN OUT PT MRI COMING UP. Surgeries: No Respiratory: Yes Asthma Currently Using CPAP: No Currently Using BIPAP: No Cardiac: No Neurological: No Reproductive Disorders: No Female Reproductive Disorders: Denies Sexually Transmitted Disease: Yes (Trich - early preg) HIV/AIDS: No Genitourinary: No Gastrointestinal: No Musculoskeletal: No Endocrine: No HEENT: No Loss of Vision: Denies Hearing Impairment: Denies Cancer: No Psychosocial: Yes ADD/ADHD, Anxiety, ODD, Depression Integumentary: No Blood Disorders: No Adverse Reaction/Blood Tranf: No Family Medical History Asthma G8 BROTHER Hypertension 19 MOTHER No Pertinent Family Hx Physical Exam Vital Signs Vital Signs - First Documented 11/25/22 14:45 Temp 36.1 Pulse 87 Resp 18 B/P (MAP) 132/85 (101) Pulse Ox 97 Capillary Refill : Height, Weight, BMI Height: 5'10.00" Weight: 171lbs. 0.0oz. 77.004568qd; 26.76 BMI Method:Stated General Appearance: no apparent distress Cardiovascular: normal peripheral pulses, regular rate, rhythm Respiratory: lungs clear, normal breath sounds Extremities: normal range of motion Psychiatric: alert Crainal Nerves: normal hearing, normal speech Motor/Sensory: no motor deficit Skin: normal color, warm/dry Progress/Results/Core Measures Results/Orders My Orders Orders - GIOVANNY DINERO DO Ct Head Wo (11/25/22 15:26) Vital Signs/I&O 11/25/22 11/25/22 14:45 15:51 Temp 36.1 36.1 Pulse 87 80 Resp 18 18 B/P (MAP) 132/85 (101) 132/85 Pulse Ox 97 97 Progress Progress Note : Progress Note Patient reports that this headache and blurry this in her vision has been going on and off for at least a month. She does understand that she has some findings on her eye exam. However patient reports been going on a month and she feels that most of it can be done on a outpatient basis. I recommended at least a CT and agree that the rest could be done on outpatient basis. I did call and discussed with Dr. Cosby her primary care provider who agrees and will follow-up with her and get her outpatient studies done. Patient had CT was obtained and was normal. Patient will need to follow-up for further evaluation which could include MRI, CBC, CRP, ESR, possible neurology consultation, possible lumbar puncture to rule out increased intracranial pressure. Patient voices understanding her need to follow-up with Dr. Cosby. She is just requesting to be going home because she is tired of being at the medical clinic today. She was stable with no acute changes when discharged. I did offer her some Toradol Reglan and Benadryl shots to help with the headache but she declined saying she is actually having a good day today. Diagnostic Imaging Diagonstic Imaging: CT Plain Films/CT/US/NM/MRI: head Comments ate of Exam:11/25/22 CT HEAD WO INDICATION: New/worsening headache, right eye swelling. TECHNIQUE: Routine non contrast-enhanced axial images were obtained from the skull base to the vertex. Auto Exposure Controls were utilized during the CT exam to meet ALARA standards for radiation dose reduction COMPARISON: 12/07/2012. FINDINGS: The ventricles and cortical sulci are normal in size and contour. There is no midline shift or mass-effect. No acute intra-axial hemorrhage is seen. There are no abnormal areas of increased or decreased density to suggest acute hemorrhage or edema. No extra-axial masses or collections are present. The bony calvarium is intact. The visualized paranasal sinuses are unremarkable. The mastoid air cells are clear. IMPRESSION: 1. No acute intracranial abnormality. No CT evidence of mass, acute infarct or intracranial hemorrhage. Reviewed: Reviewed by Me, Reviewed/Discussed Departure Impression Primary Impression: Headache Qualified Codes: R51.9 - Headache, unspecified; G89.29 - Other chronic pain Additional Impression: Optic nerve swelling Disposition: 01 HOME, SELF-CARE Condition: Stable Departure-Patient Inst. Referrals: RICHI COSBY MD (PCP/Family) Primary Care Physician Patient Instructions: Headache, Adult ED Add. Discharge Instructions: Please follow-up with Dr. Cosby for further evaluation. Please call and make an appointment today or tomorrow morning. All discharge instructions reviewed with patient and/or family. Voiced understanding. GIOVANNY DINERO DO Nov 25, 2022 14:57
--- NOTE | 2022-11-25 15:40 | Diagnostic Imaging Report ---
INDICATION: New/worsening headache, right eye swelling. TECHNIQUE: Routine non contrast-enhanced axial images were obtained from the skull base to the vertex. Auto Exposure Controls were utilized during the CT exam to meet ALARA standards for radiation dose reduction COMPARISON: 12/07/2012. FINDINGS: The ventricles and cortical sulci are normal in size and contour. There is no midline shift or mass-effect. No acute intra-axial hemorrhage is seen. There are no abnormal areas of increased or decreased density to suggest acute hemorrhage or edema. No extra-axial masses or collections are present. The bony calvarium is intact. The visualized paranasal sinuses are unremarkable. The mastoid air cells are clear. IMPRESSION: 1. No acute intracranial abnormality. No CT evidence of mass, acute infarct or intracranial hemorrhage. Dictated by: Dictated on workstation # [id number]
[2022-11-25 15:51] VITALS: BP 132/85
== END 2022-11-25 15:51 | disposition home or self-care (01) ==
LOC: EDUNIT# 14:36 → ER 14:39
DX: R51.9 Headache, unspecified (principal); H47.10 Unspecified papilledema
CPT/HCPCS: 70450; 99281

== ENCOUNTER → 2022-12-08 | Outpatient (CLI) | payer MEDICAID ==
[~2022-12-08] MED LIST changes: +GADOTERATE 0.5 MMOL/ML (CLARISCAN) 20 ML VIAL IV ONE
--- NOTE | 2022-12-08 09:54 | Diagnostic Imaging Report ---
PROCEDURE: MR imaging of the brain with and without contrast. TECHNIQUE: Multiplanar, multisequence MR imaging of the brain was performed with and without contrast. INDICATION: Persistent headache. The ventricles and sulci are within normal limits. No sulcal effacement or midline shift. There is no diffusion restriction. The normal expected flow-voids within the carotid siphons are seen. No acute intra-axial or extra-axial hemorrhage is detected. No abnormal enhancement following contrast demonstration is identified. The corpus callosum is unremarkable. The sella and parasellar structures are unremarkable. IMPRESSION: Unremarkable pre and postcontrast MRI of the brain. Dictated by: Dictated on workstation # [id number]
== END ==
LOC: RAD 08:20
PROVIDERS: ATTEND Family Medicine
DX: H57.11 Ocular pain, right eye (principal)
CPT/HCPCS: 70553